=== PATIENT | male | born 1945 | race Caucasian/White ===

== ENCOUNTER 2022-07-29 17:20 | Emergency (ER) | payer SELFPAY ==
[2022-07-29] MEDS ORDERED: Diphtheria,Pertussis(Acell),Tetanus Vaccine 0.5 ML Syringe IM ONE (19:39)
[2022-07-29] MEDS ORDERED: Lidocaine 1% 5 ML VIAL INJECT ONE (19:39)
[2022-07-29] MEDS ORDERED: Bacitracin Oint 1 GM U/D Packet TOP ONE (20:00)
== END 2022-07-29 20:45 | disposition home or self-care (01) ==
LOC: JP.ED 17:20
DX: S61.421A Laceration with foreign body of right hand, initial encounter (principal); Z79.899 Other long term (current) drug therapy; Z23 Encounter for immunization; W18.39XA Other fall on same level, initial encounter
CPT/HCPCS: 12002; 90471; 90715; 99282-25